=== PATIENT | male | born 1975 | race American Indian/Alaskan Native ===

== ENCOUNTER 2017-02-04 17:26 | Emergency (ER) | payer SELFPAY ==
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
[2017-02-04] MEDS ORDERED: TYLENOL PO ONE (17:48)
[2017-02-04] MEDS ORDERED: MOTRIN PO ONE (17:49)
[2017-02-04] MEDS ORDERED: NACL 0.9% 500 ML IR ONE (20:16)
[2017-02-04] MEDS ORDERED: NACL 0.9% IR ONE (20:17)
[2017-02-04] MEDS ORDERED: NORCO 5/325 PO ONE (20:39)
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
[2017-02-04 22:55] VITALS: BP 135/85
== END 2017-02-04 21:10 | disposition home or self-care (01) ==
LOC: ED 17:26
DX: S71.101A Unspecified open wound, right thigh, initial encounter (principal); I10 Essential (primary) hypertension; F17.200 Nicotine dependence, unspecified, uncomplicated; W34.09XA Accidental discharge from other specified firearms, initial encounter; Y93.89 Activity, other specified; Y92.89 Other specified places as the place of occurrence of the external cause; Y99.8 Other external cause status
CPT/HCPCS: 99283